=== PATIENT | male | born 1945 | race Caucasian/White ===

== ENCOUNTER → 2016-10-26 | Outpatient (CLI) | payer MEDICARE, BC ==
[~2016-10-26] MED LIST: ASPIRIN81 MG PO; FLEXERIL10 MG PO; FLOMAX0.4 MG PO; GLUCOPHAGE850 M1 PO; INVOKANA100 MG PO; METAMUCIL FIBE3.4 GM PO; ONGLYZA5 MG PO; PRILOSEC40 MG PO; TOPROL XL25 MG PO; VICTOZA 2-0.6 MG/0.1 SUBCUT; ZOCOR40 MG PO
== END | disposition short-term general hospital (02) ==
LOC: CLORTH 09:18
DX: S46.011D Strain of muscle(s) and tendon(s) of the rotator cuff of right shoulder, subsequent encounter (principal)